=== PATIENT | male | born 1980 | race Caucasian/White ===

== ENCOUNTER 2021-01-26 19:46 | Emergency (ER) | payer MEDICAID ==
--- NOTE | 2021-01-26 21:16 | EDM.PDOC ---
ED HPI GENERAL MEDICAL PROBLEM - General Chief Complaint: Lower Extremity Injury/Pain Stated Complaint: FOOT PAIN Time Seen by Provider: 01/26/21 21:05 Source of Information: Reports: Patient History Limitations: Reports: No Limitations - History of Present Illness INITIAL COMMENTS - FREE TEXT/NARRATIVE: John is a 40-year-old male from [place], [place] presents to the ED via [facility] for evaluation of bilateral foot pain. Short, the patient's story starts with an order of protection that was filed against him several days ago in [place] by his mother's new . Currently the patient had been working but lost his job and for details that are beyond the scope of this the bench repair technician of the property who is to his mother filed an order of protection evicting the patient from the residents. For cement was there to remove the patient from the residents and did not allow him to take any of his personal effects. Eventually his mom brought him luggage with his close and it and the patient took a [employer] bus from the [facility] to [facility] to meet with the girl at the [facility] that he had made contact with. He arrived in [facility] with the bus but could not make contact with her as she has not been answering her phone. The patient has been walking around for the last couple of days and the snow with noninsulated shoes and wet socks. Initially he did not have any difficulty with that, however, today he was having significant pain and went to the [facility]'s office and requested to be arrested so that he had a place to stay. Only the first night and walker he stayed in a hotel room. The [facility] office called EMS who brought the patient here for evaluation. Patient is ambulatory without difficulty but his socks were wet and he is wearing noninsulated boots. Patient complains of having several plantar warts causing his pain. feet Pain Score (Numeric/FACES): 6 - Related Data Allergies Allergy/AdvReac Type Severity Reaction Status Date / Time No Known Allergies Allergy Verified 01/26/21 20:16 Home Meds: Home Meds NK [No Known Home Meds] 01/26/21 [History] Past Medical History HEENT History: Reports: Impaired Vision Musculoskeletal History: Reports: Fracture - Infectious Disease History Infectious Disease History: Reports: MRSA Social & Family History - Tobacco Use Tobacco Use Status *Q: Current Every Day Tobacco User Years of Tobacco use: 25 Packs/Tins Daily: 1 - Caffeine Use Caffeine Use: Reports: Energy Drinks - Recreational Drug Use Recreational Drug Use: No Review of Systems - Review of Systems Review Of Systems: See Below Constitutional: Reports: No Symptoms Eyes: Reports: No Symptoms Ears: Reports: No Symptoms Nose: Reports: No Symptoms Mouth/Throat: Reports: No Symptoms Respiratory: Reports: No Symptoms Cardiovascular: Reports: No Symptoms GI/Abdominal: Reports: No Symptoms Genitourinary: Reports: No Symptoms Musculoskeletal: Reports: Foot Pain (Bilateral foot pain and swelling) Neurological: Reports: No Symptoms Psychiatric: Reports: No Symptoms ED EXAM, GENERAL - Physical Exam Exam: See Below Exam Limited By: No Limitations General Appearance: Alert, No Apparent Distress Peripheral Pulses: 2+: Posterior Tibial (L), Posterior Tibial (R) Extremities: Normal Range of Motion, Normal Capillary Refill, Pedal Edema (Mild lateral), Redness, Other (There is bilateral hyperemia and swelling of the feet especially over the plantar surface. There is no bulla or blistering noted. Hyperemia at the base of each of the nails of the toes of both feet. Is consistent with recent frostbite. There is a small plantar wart on the left foot. There is good capillary refill of the nailbeds. Is good posterior tibial pulses.) Neurological: Alert, Oriented, Normal Cognition, No Motor/Sensory Deficits Psychiatric: Normal Affect, Normal Mood Skin Exam: Warm, Dry, Intact, Erythema. No: Increased Warmth, Rash, Wound/Incision Lymphatic: No Adenopathy Course - Vital Signs Last Recorded V/S: Last Vital Signs Temp 36.4 C 01/26/21 20:14 Pulse 75 01/26/21 20:14 Resp 20 01/26/21 20:14 BP 173/110 H 01/26/21 20:14 Pulse Ox 98 01/26/21 20:14 - Re-Assessments/Exams Free Text/Narrative Re-Assessment/Exam: 01/26/21 21:20 patient inquired about if it was able to find any medical reason that he would need to be hospitalized so he had somewhere to stay. I did tell h im that we will provide him with information for shelters in the area. He does not meet any medical criteria that would require him to be hospitalized and to do so would be committing fraud. I did explain to him that I understand his plate, however, there is nothing further that we can do for him at this time. We did discuss management of the frostbite and limiting his exposure to the cold. This is to be making contact with the girl at the [place] but he has been trying to contact. Departure - Departure Time of Disposition: 21:07 Disposition: Home, Self-Care 01 Condition: Good Clinical Impression: Bilateral foot pain Frostbite of both feet Qualifiers: Encounter type: initial encounter Qualified Code(s): T33.821A - Superficial frostbite of right foot, initial encounter; T33.822A - Superficial frostbite of left foot, initial encounter - Discharge Information *PRESCRIPTION DRUG MONITORING PROGRAM REVIEWED*: Not Applicable *COPY OF PRESCRIPTION DRUG MONITORING REPORT IN PATIENT ROGERS: Not Applicable Instructions: Frostbite, Foot Pain Referrals: PCP,None [Primary Care Provider] - Care Plan Goals: Avoid the extreme cold on your feet. Make sure that you continue to wear clean and dry socks. You would benefit from limiting your exposure to the cold. You may take Tylenol or ibuprofen for the pain. Nursing has provided you with a list of shelters in the area. Unfortunately, there are no medical conditions that would warrant admitting you to the hospital. Sepsis Event Note (ED) - Evaluation Sepsis Screening Result: No Definite Risk - Focused Exam Vital Signs: Vital Signs Temp Pulse Resp BP Pulse Ox 01/26/21 20:14 36.4 C 75 20 173/110 H 98 - Problem List & Annotations (1) Bilateral foot pain SNOMED Code(s): 53031575 Code(s): M79.671 - PAIN IN RIGHT FOOT; M79.672 - PAIN IN LEFT FOOT Status: Acute Priority: Low Current Visit: Yes (2) Frostbite of both feet SNOMED Code(s): 32768969 Code(s): T33.821A - SUPERFICIAL FROSTBITE OF RIGHT FOOT, INITIAL ENCOUNTER; T33.822A - SUPERFICIAL FROSTBITE OF LEFT FOOT, INITIAL ENCOUNTER Status: Acute Priority: Low Current Visit: Yes Qualifiers: Encounter type: initial encounter Qualified Code(s): T33.821A - Superficial frostbite of right foot, initial encounter; T33.822A - Superficial frostbite of left foot, initial encounter - Problem List Review Problem List Initiated/Reviewed/Updated: Yes
== END 2021-01-26 21:22 | disposition home or self-care (01) ==
LOC: JP.ED 19:46
DX: T33.822A Superficial frostbite of left foot, initial encounter (principal); T33.821A Superficial frostbite of right foot, initial encounter; Z72.0 Tobacco use
CPT/HCPCS: 99282; 99284